=== PATIENT | male | born 1950 | race Caucasian/White ===

== ENCOUNTER 2023-10-28 07:07 | Inpatient (IN) | payer MEDICARE, OTHER ==
[2023-10-28] MEDS ORDERED: MIDAZOLAM HCL 2 MG/2ML VIAL ONE (08:07)
[2023-10-28] MEDS ORDERED: FENTANYL PF 100MCG/2ML AMPUL ONE ×2 (08:08)
[2023-10-28] MEDS ORDERED: VANCOMYCIN 1 GM VIAL ONE (08:27)
[2023-10-28] MEDS ORDERED: dexaMETHasone SOD PHOSPHATE 2 ML ONE (08:27)
[2023-10-28] MEDS ORDERED: OXYMETAZOLINE HCL NASAL SPRAY 30 ML BOTTLE NS ONE (08:27)
[2023-10-28] MEDS ORDERED: LIDOCAINE 2%-EPI 1:100,000 30 ML VIAL ONE (08:27)
[2023-10-28 11:30] VITALS: BP 139/88; TEMP 97.5; O2SAT 96
[2023-10-28] MEDS ORDERED: ACETAMINOPHEN 325 MG TABLET PO PRN (11:30)
[2023-10-28] MEDS ORDERED: ONDANSETRON HCL/PF 4 MG/2 ML VIAL IVP PRN (11:30)
[2023-10-28] MEDS ORDERED: HYDROMORPHONE 1 MG/1 ML DISP.SYRIN IV PRN (11:30)
[2023-10-28 12:00] VITALS: BP 139/88; TEMP 97.5; O2SAT 96
[2023-10-28 16:00] VITALS: BP 129/85; TEMP 97.7; O2SAT 95
[2023-10-28] MEDS: IV NS 0.9% 1,000 ML IV PRN (16:05)
[2023-10-28 20:00] VITALS: BP 114/81; TEMP 98.1; O2SAT 93
[2023-10-28] MEDS: VANCOMYCIN 1 GM in IV D5W 250ml IV SCH (20:22)
[2023-10-29 08:00] VITALS: BP 117/81; TEMP 98.3; O2SAT 96
== END 2023-10-29 11:20 | disposition home or self-care (01) | DRG 908 ==
LOC: DS 07:07 → MED 11:38
PROC: 0NSR04Z Reposition Maxilla with Internal Fixation Device, Open Approach (ICD-10-PCS; principal; 2023-10-28)
PROC: 0NST04Z Reposition Right Mandible with Internal Fixation Device, Open Approach (ICD-10-PCS; 2023-10-28)
PROC: 0NUV07Z Supplement Left Mandible with Autologous Tissue Substitute, Open Approach (ICD-10-PCS; 2023-10-28)
PROC: 0NUR07Z Supplement Maxilla with Autologous Tissue Substitute, Open Approach (ICD-10-PCS; 2023-10-28)
PROC: 0NBV0ZX Excision of Left Mandible, Open Approach, Diagnostic (ICD-10-PCS; 2023-10-28)
PROC: 0NBR0ZX Excision of Maxilla, Open Approach, Diagnostic (ICD-10-PCS; 2023-10-28)
DX: T86.831 Bone graft failure (principal); S02.40DK Maxillary fracture, left side, subsequent encounter for fracture with nonunion; T81.83XA Persistent postprocedural fistula, initial encounter; S02.69XK Fracture of mandible of other specified site, subsequent encounter for fracture with nonunion; M27.2 Inflammatory conditions of jaws; Y83.8 Other surgical procedures as the cause of abnormal reaction of the patient, or of later complication, without mention of misadventure at the time of the procedure; Y92.009 Unspecified place in unspecified non-institutional (private) residence as the place of occurrence of the external cause; D16.4 Benign neoplasm of bones of skull and face; I10 Essential (primary) hypertension; I35.1 Nonrheumatic aortic (valve) insufficiency; M27.49 Other cysts of jaw; J32.0 Chronic maxillary sinusitis
CPT/HCPCS: A4223; C1713; G0378; J0330; J1100; J1885; J2250; J2405; J2704; J2765; J3010; J3370; J3490; J7030; J7050; J7060

== ENCOUNTER 2024-03-31 09:04 | Inpatient (IN) | payer MEDICARE, OTHER ==
[2024-03-31] VITALS (7 sets, daily range): BP systolic 114–140; BP diastolic 77–86; TEMP 97.9–98.5; O2SAT 94–95
[~2024-03-31] VITALS: Ht 142.2 cm; Wt 81.6 kg
[2024-03-31] MEDS ORDERED: OXYMETAZOLINE HCL NASAL SPRAY 30 ML BOTTLE NS ONE (11:06)
[2024-03-31] MEDS ORDERED: dexaMETHasone SOD PHOSPHATE 2 ML ONE (11:06)
[2024-03-31] MEDS ORDERED: VANCOMYCIN 1 GM VIAL ONE (11:06)
[2024-03-31] MEDS ORDERED: LIDOCAINE 2%-EPI 1:100,000 30 ML VIAL ONE (11:07)
[2024-03-31] MEDS ORDERED: ROCURONIUM BROMIDE 50 MG/5 ML ONE (11:17)
[2024-03-31] MEDS: IV NS 0.9% 1,000 ML IV PRN (14:12)
[2024-03-31] MEDS ORDERED: HYDROMORPHONE 1 MG/1 ML DISP.SYRIN IV PRN (14:30)
[2024-03-31] MEDS ORDERED: ONDANSETRON HCL/PF 4 MG/2 ML VIAL IV PRN (14:30)
[2024-03-31] MEDS ORDERED: LISI10TA29 PO (14:52)
[2024-03-31] MEDS ORDERED: ASPI-1169 PO (14:52)
[2024-03-31] MEDS ORDERED: OMEG10006 PO (14:52)
[2024-03-31] MEDS ORDERED: Medication Not On Formulary EA (Omega-3 Fatty Acids (Omega-3) 1,000 MG) PO SCH (17:00)
[2024-03-31] MEDS: VANCOMYCIN 1 GM in IV D5W 250ml IV SCH (22:05)
[2024-04-01 05:44] LABS: BASOPHILS % (AUTO) 0.1 % (0.0-2.0); HEMATOCRIT 37 % (39-51); HEMOGLOBIN 12.7 g/dL (13.5-17.5); LYMPHOCYTES # (AUTO) 0.8 K/uL (0.8-4.8); LYMPHOCYTES % (AUTO) 7.4 % (20.0-44.0); MEAN CORPUSCULAR HEMOGLOBIN 30 PG (26.0-33.0); MEAN CORPUSCULAR HGB CONC 34 g/dl (31.0-36.0); MEAN CORPUSCULAR VOLUME 89 fL (80-96); MONOCYTES # (AUTO) 0.7 K/uL (0.1-1.30); MONOCYTES % (AUTO) 6.8 % (2.0-12.0); NEUTROPHILS # (AUTO) 9.1 K/uL (1.8-8.9); NEUTROPHILS % (AUTO) 85.7 % (43.0-81.0); PLATELET COUNT (AUTO) 211 K/uL (150-450); RED CELL DISTRIBUTION WIDTH 14.6 % (11.5-15.0); WHITE BLOOD COUNT (AUTO) 10.7 K/uL (4.3-11.0)
[2024-04-01 06:02] LABS: CALCIUM, SERUM 8.9 mg/dL (8.5-10.1); CARBON DIOXIDE 22 mmol/L (21-32); CHLORIDE 103 mmol/L (98-107); CREATININE 0.9 mg/dL (0.6-1.3); GLUCOSE 165 mg/dL (74-106); MAGNESIUM 1.9 mg/dL (1.8-2.4); PHOSPHORUS 2.7 mg/dL (2.5-4.9); POTASSIUM 4.2 mmol/L (3.5-5.1); SODIUM SERUM 137 mmol/L (136-145); UREA NITROGEN, BLOOD 20 mg/dL (7-18)
[2024-04-01] MEDS: PANTOPRAZOLE 40 MG TABLET.DR PO SCH (06:37)
[2024-04-01 08:00] VITALS: BP 130/84; TEMP 98.6; O2SAT 94
[2024-04-01] MEDS: ASPIRIN 81 MG TAB.CHEW PO SCH (09:44)
[2024-04-01 09:45] VITALS: BP 130/84
[2024-04-01] MEDS: LISINOPRIL (10MG) 10 MG TABLET PO SCH (09:45)
[2024-04-01] MEDS: ACETAMINOPHEN 325 MG TABLET PO PRN (09:49)
== END 2024-04-01 13:45 | disposition home or self-care (01) | DRG 908 ==
LOC: DS 09:04 → MED 13:45
PROVIDERS: ADMIT Nurse Practitioner Family; ATTEND Nurse Practitioner Family
PROC: 0NPW04Z Removal of Internal Fixation Device from Facial Bone, Open Approach (ICD-10-PCS; principal; 2024-03-31)
PROC: 0N5V0ZZ Destruction of Left Mandible, Open Approach (ICD-10-PCS; 2024-03-31)
PROC: 0N5R0ZZ Destruction of Maxilla, Open Approach (ICD-10-PCS; 2024-03-31)
PROC: 0NBT0ZZ Excision of Right Mandible, Open Approach (ICD-10-PCS; 2024-03-31)
PROC: 0NSV04Z Reposition Left Mandible with Internal Fixation Device, Open Approach (ICD-10-PCS; 2024-03-31)
PROC: 0NUV07Z Supplement Left Mandible with Autologous Tissue Substitute, Open Approach (ICD-10-PCS; 2024-03-31)
PROC: 0NPW07Z Removal of Autologous Tissue Substitute from Facial Bone, Open Approach (ICD-10-PCS; 2024-03-31)
DX: T86.831 Bone graft failure (principal); S02.69XK Fracture of mandible of other specified site, subsequent encounter for fracture with nonunion; T84.69XA Infection and inflammatory reaction due to internal fixation device of other site, initial encounter; I10 Essential (primary) hypertension; Z87.11 Personal history of peptic ulcer disease; Y83.2 Surgical operation with anastomosis, bypass or graft as the cause of abnormal reaction of the patient, or of later complication, without mention of misadventure at the time of the procedure; M27.2 Inflammatory conditions of jaws; K13.70 Unspecified lesions of oral mucosa; M89.38 Hypertrophy of bone, other site; X58.XXXD Exposure to other specified factors, subsequent encounter; T18.0XXA Foreign body in mouth, initial encounter; Y83.8 Other surgical procedures as the cause of abnormal reaction of the patient, or of later complication, without mention of misadventure at the time of the procedure; Y92.009 Unspecified place in unspecified non-institutional (private) residence as the place of occurrence of the external cause; I35.1 Nonrheumatic aortic (valve) insufficiency
CPT/HCPCS: 36415; 80048-TC; 83735-TC; 84100-TC; 85025-TC; 88300-TC; 88305-TC; 88311-TC; A4223; C1713; G0378; J0461; J0690; J1100; J2405; J2704; J3370; J3490; J7030; J7060